=== PATIENT | female | born 1990 | race Caucasian/White ===

== ENCOUNTER 2023-01-08 08:22 | Outpatient (REF) | payer OTHER, SELFPAY ==
[2023-01-08 11:12] LABS: MANUAL DIFF FLAG NO
[2023-01-08 11:30] LABS: Basophils Percent Auto 0.7 % (0-2); Eosinophils Absolute Auto 0.1 X10*3/uL (0.0-0.4); Eosinophils Percent Auto 1.5 % (0-4); Hematocrit 41.1 % (37.0-47.0); Hemoglobin 13.4 g/dl (12.0-16.0); Imm Gran Abs Auto 0.01 X10*3/uL (0.00-0.03); Imm Gran Pct Auto 0.2 % (0.0-0.4); Lymphocytes Percent Auto 34.2 % (20-40); Mean Corpuscular HGB Conc 32.6 g/dl (31.0-35.0); Mean Corpuscular Hemoglobin 28.3 pg (27.0-33.0); Mean Corpuscular Volume 86.9 fL (80.0-98.0); Mean Platelet Volume 11.6 fL (9.4-12.3); Monocytes Absolute Auto 0.5 X10*3/uL (0.1-1.2); Monocytes Percent Auto 7.7 % (2-11); Neutrophils Absolute Auto 3.3 x10*3/uL (2.0-8.3); Neutrophils Percent Auto 55.7 % (45-73); Platelet Count 216 X10*3/uL (160-400); Red Blood Count 4.73 X10*6/uL (4.20-5.50); Red Cell Distribution Width 12.4 % (11.0-16.0)
[2023-01-08 11:59] LABS: Alanine Aminotransferase 9 U/L (0-31); Albumin Level 4.6 g/dL (3.5-5.0); Alkaline Phosphatase 66 U/L (39-117); Anion Gap 15 (12-20); Aspartate Amino Transferase 15 U/L (5-31); Bilirubin Total 1.6 mg/dL (0.0-1.0); Blood Urea Nitrogen 8 mg/dL (9-16); Calcium 9.4 mg/dL (8.4-10.2); Carbon Dioxide 21 mmol/L (22-29); Chloride 107 mmol/L (96-108); Estimated Glomerular Filt Rate > 60; Glucose Fasting 84 mg/dL (60-99); Potassium 3.9 mmol/L (3.3-5.1); Sodium 139 mmol/L (135-145); TSH reflex Free T4 0.68 uIU/mL (0.32-4.0); Total Protein 7.6 g/dL (6.5-8.0)
[2023-01-15 17:38] LABS: Vitamin D 25-OH, D2 <4 ng/mL; Vitamin D 25-OH, D3 22 ng/mL; Vitamin D 25-OH, Total 22 ng/mL (30-100)
== END 2023-01-08 08:23 | disposition home or self-care (01) ==
LOC: HO.HMGCLDS 08:22
PROVIDERS: PCP Internal Medicine; Visit Provider Internal Medicine
DX: Z31.7 Encounter for procreative management and counseling for gestational carrier (principal); E66.3 Overweight; Z13.21 Encounter for screening for nutritional disorder
CPT/HCPCS: 36415; 80053; 82306; 84443; 85025

== ENCOUNTER 2024-02-12 09:45 | Outpatient (AMB) | payer OTHER, SELFPAY ==
--- NOTE | 2024-02-12 09:50 | A.OFFPC_ITS ---
Vital Signs 02/12/24 09:51 Height 5 ft 4 in Weight 165 lb BMI 28.3 BP 120/80 Blood Pressure Location Rt brachial Position Sitting Pulse 78 Pulse Source Pulse Oximeter Pulse Oximetry (%) 97 Oxygen Delivery Method Room Air Intake Visit Reasons: PE Allergies cefaclor [From Ceclor] Adverse Reaction (Mild, Verified 02/12/24 09:52) hives Medication List - Last Reconciled 02/12/24 by Pastor Montanez MD No Known Home Meds Tobacco use date assessed: 02/12/24 Dental Screening Dental Screen Date: 02/12/24 Did you have a dental visit in the last 12 months?: Yes Did you have a dental problem in the last 6 months where you did not have access to dental care?: No Was dental information given to patient?: Patient has dentist HPI PE HPI Details Patient is a 33-year-old female who is at the moment date of delivery is 03/05/2024 Patient is seeing OBGYN at [facility] Dr. Brown phone number [phone] Last time she had labs last year at physical exam her bilirubin was slightly off we will be repeating labs again I will forward the lab report to the OBGYN. Patient offer no complaints today She will return in 1 year for physical exam [facility] Social History Housing: House Patient Tobacco Use Status: Never used Tobacco e-Cigarette/Vaping Use: Never Used service: No Current occupational status: employed Current occupation: [employer] Cognitive needs: No Hearing needs: No Vision needs: Yes Questionnaire PHQ-9 Over the last 2 weeks, how often have you been bothered by any of the following problems? 1. Little interest or pleasure in doing things: not at all 2. Feeling down, depressed, or hopeless: not at all 3. Trouble falling or staying asleep, or sleeping too much: several days 4. Feeling tired or having little energy: several days 5. Poor appetite or overeating: not at all 6. Feeling bad about yourself - or that you are a failure or have let yourself or your family down: not at all 7. Trouble concentrating on things, such as reading the newspaper or watching television: not at all 8. Moving or speaking so slowly that other people could have noticed. Or the opposite - being so fidgety or restless that you have been moving around a lot more than usual: not at all 9. Thoughts that you would be better off or of hurting yourself in some way: not at all Total score: 2 Depression Screening Interpretation: Negative Depression Screening Done: Yes 11692 - PHQ-9 Billing: Yes Source: Developed by Drs. Soy Hdez, Fifi Fuchs, Shukri Romero and colleagues, with an educational chiqui from [employer]. Thrive Questionnaire Date Thrive assessed: 02/12/24 I am a: Patient What is your living situation today?: I have a steady place to live Within the past 12 months, did the food you bought not last and you didn't have the money to get more?: Never true Within the past 12 months, did you worry whether your food would run out before you got money to buy more?: Never true Do you have trouble paying for medicines?: No Do you have trouble getting transportation to medical appointments?: No Do you have trouble paying your heating and electricity bill?: No Do you have trouble taking care of your child, family member or friend?: No Do you have trouble with day-to-day activities such as bathing, preparing meals, shopping, managing finances, etc.?: No Are you currently unemployed and looking for a job?: No Are you interested in more education?: No Please select the resources that you would like help with: None Currently or been in a relationship where the following occur: I choose not to answer THRIVE Score: 0 AUDIT C Alcohol Use Questionnaire (AUDIT-C) 1. How often do you have a drink containing alcohol?: Never 3. How often do you have six or more drinks on one occasion?: Never Total Score: 0 Score Reviewed/Action Taken: No DEEDEE-7 AMB Questionnaire DEEDEE-7 Date DEEDEE - 7 assessed: 02/12/24 Feeling nervous, anxious, or on edge: 0 = Not at all Not being able to stop or control worryin = Not at all Worrying too much about different things: 0 = Not at all Trouble relaxin = Not at all Being so restless that it is hard to sit still: 0 = Not at all Becoming easily annoyed or irritable: 0 = Not at all Feeling afraid as if something awful might happen: 0 = Not at all Total DEEDEE-7 score (0-4 normal; 5-9 mild; 10-14 moderate; 15-21 severe): 0 Source: Developed by Drs. Soy Hdez, Fifi Fuchs, Shukri Romero and colleagues, with an educational chiqui from [employer]. DEEDEE-7 Assessment Billing DEEDEE-7 Assessment Tool: DEEDEE-7 Assessment 41338 Review of Systems Const Denies chills, Denies fever(s) and Denies headache(s) Eyes Denies blurry vision ENT Denies headache(s), Denies nasal discharge, Denies nasal obstruction, Denies odynophagia and Denies sinus pain Card Denies chest pain at rest and Denies chest pain with activity Resp Denies cough and Denies hemoptysis GI Denies diarrhea, Denies odynophagia, Denies vomiting and Denies hematemesis Reports as per HPI Musc Denies abnormal gait Skin/Breast Reports as per HPI Neuro Denies Neuro-related abnormal movements, Denies Abnormal speech present, Denies abnormal gait, Denies headache(s) and Denies Sensory deficit (Neuro) Psych Denies mood swings and Denies paranoia Endo Reports as per HPI Chu/Lymph Reports as per HPI Aller/Immun Reports as per HPI Physical exam (Primary Care) Vital Signs: Last Vital Signs Pulse 78 02/12/24 09:51 BP 120/80 02/12/24 09:51 Pulse Ox 97 02/12/24 09:51 Oxygen Delivery Method Room Air 02/12/24 09:51 BMI result Body Mass Index 28.3 Tobacco/Smoking Status: Tobacco use Status Tobacco use date assessed 02/12/24 02/12/24 09:55 Patient Tobacco Use Status Never used Tobacco 02/12/24 09:55 e-Cigarette/Vaping Use Never Used 02/12/24 09:55 Depression Screening Interpretation: Negative Thrive Assessment: Date of Thrive Assessment Date Thrive assessed 01/02/23 02/12/24 09:55 Currently or been in a relationship where the following occur: I choose not to answer Const General: cooperative, comfortable and no acute distress Orientation/consciousness: patient oriented x3 HENMT Head: Yes normocephalic and Yes atraumatic Eyes General: appearance normal, both eyes and all related structures Pupils: Equal, round and reactive pupils present EOM: EOMs intact bilaterally Neck Neck: Yes supple and No lymphadenopathy Thyroid: Thyroid normal Lymphatic: no lymphadenopathy noted Resp Effort & Inspection: normal respiratory effort and able to speak in complete sentences Auscultation: clear to auscultation bilaterally Cardio Heart sounds: S1 normal heart sound present and S2 normal heart sound present GI Other: Palpation (GI): Soft to palpation and nontender Auscultation: normal bowel sounds General: Yes no CVA tenderness Back/Spine/Pelvis Back: no CVA tenderness Skin General skin exam: elasticity normal and turgor normal Neuro General: patient oriented x3 and gait normal Cranial nerves: Yes Equal, round and reactive pupils present Speech: No Abnormal speech present Sensory Exam: No Sensory deficit (Neuro) Coordination: tandem gait normal and Romberg test negative Extrem General: Yes normal exam except as noted and No edema Assessment and Plan Assessment & Plan (1) Encounter for general adult medical examination with abnormal findings: Code(s): Z00. - Encounter for general adult medical examination with abnormal findings (2) : Code(s): Z34. - Encounter for supervision of normal , unspecified, unspecified trimester Qualifiers: Weeks of gestation: 21 weeks Qualified Code(s): Z3A.21 - 21 weeks gestation of (3) LFT elevation: Code(s): R79.89 - Other specified abnormal findings of blood chemistry Plan Patient is a 33-year-old female who is at the moment date of delivery is 03/05/2024 Patient is seeing OBGYN at [facility] phone number [phone] Last time she had labs last year at physical exam her bilirubin was slightly off we will be repeating labs again I will forward the lab report to the OBGYN. Patient offer no complaints today She will return in 1 year for physical exam Orders: Orders TSH reflex Free T4 Today R79.89 - Other specified abnormal findings of blood chemistry, Z00. - Encounter for general adult medical examination with abnormal findings, Z34.90 - Encounter for supervision of normal , unspecified, unspecified trimester Complete Blood Count Auto Diff Today R79.89 - Other specified abnormal findings of blood chemistry, Z00. - Encounter for general adult medical examination with abnormal findings, Z34. - Encounter for supervision of normal , unspecified, unspecified trimester Vitamin D 25-OH (D2 and D3) Today R79.89 - Other specified abnormal findings of blood chemistry, Z00.01 - Encounter for general adult medical examination with abnormal findings, Z34.90 - Encounter for supervision of normal , unspecified, unspecified trimester Comprehensive Met. Panel Today R79.89 - Other specified abnormal findings of blood chemistry, Z00.01 - Encounter for general adult medical examination with abnormal findings, Z34.90 - Encounter for supervision of normal , unspecified, unspecified trimester Coding Level of Care Code Est Pt Level 3 (10336) Est Pt Prev Care 18-39y(06382) Diagnoses Encounter for general adult medical examination with abnormal findings Z00.01 21 weeks gestation of Z3A.21 Weeks of gestation: 21 weeks LFT elevation R79.89 Additional Codes DEEDEE-7 Assessment Billing - DEEDEE-7 Assessment Tool: DEEDEE-7 Assessment 52633 ([id number])
[2024-02-12 09:51] VITALS: BP 120/80; PULSE 78; O2SAT 97; BMI 28.3
== END 2024-02-12 10:14 | disposition home or self-care (01) ==
PROVIDERS: PCP Internal Medicine; Visit Provider Internal Medicine
DX: Z00.00 Encounter for general adult medical examination without abnormal findings (principal); Z3A.21 21 weeks gestation of pregnancy; R79.89 Other specified abnormal findings of blood chemistry
CPT/HCPCS: 99395

== ENCOUNTER 2024-02-12 10:15 | Outpatient (REF) | payer OTHER, SELFPAY ==
[2024-02-12 13:14] LABS: MANUAL DIFF FLAG NO
[2024-02-12 13:18] LABS: Basophils Percent Auto 0.3 % (0-2); Eosinophils Absolute Auto 0.1 X10*3/uL (0.0-0.4); Eosinophils Percent Auto 0.8 % (0-4); Hematocrit 33.5 % (37.0-47.0); Imm Gran Abs Auto 0.22 X10*3/uL (0.00-0.03); Imm Gran Pct Auto 1.8 % (0.0-0.4); Lymphocytes Absolute Auto 1.8 X10*3/uL (1.2-4.9); Lymphocytes Percent Auto 15.2 % (20-40); Mean Corpuscular HGB Conc 32.8 g/dl (31.0-35.0); Mean Corpuscular Hemoglobin 29.3 pg (27.0-33.0); Mean Corpuscular Volume 89.3 fL (80.0-98.0); Mean Platelet Volume 11.5 fL (9.4-12.3); Monocytes Absolute Auto 0.8 X10*3/uL (0.1-1.2); Monocytes Percent Auto 6.5 % (2-11); Neutrophils Percent Auto 75.4 % (45-73); Platelet Count 187 X10*3/uL (160-400); Red Blood Count 3.75 X10*6/uL (4.20-5.50); Red Cell Distribution Width 13.2 % (11.0-16.0); White Blood Count 11.9 X10*3/uL (4.8-10.8)
[2024-02-12 13:46] LABS: Alanine Aminotransferase 14 U/L (0-31); Albumin Level 3.4 g/dL (3.5-5.0); Alkaline Phosphatase 91 U/L (39-117); Anion Gap 12 (12-20); Aspartate Amino Transferase 17 U/L (5-31); Bilirubin Total 0.3 mg/dL (0.0-1.0); Blood Urea Nitrogen 8 mg/dL (9-16); Calcium 8.8 mg/dL (8.4-10.2); Carbon Dioxide 22 mmol/L (22-29); Chloride 108 mmol/L (96-108); Estimated Glomerular Filt Rate > 60; Glucose Random 83 mg/dL (60-115); Potassium 3.9 mmol/L (3.3-5.1); Sodium 138 mmol/L (135-145); Total Protein 6.7 g/dL (6.5-8.0)
[2024-02-12 14:02] LABS: TSH reflex Free T4 1.05 uIU/mL (0.32-4.0)
[2024-02-18 14:58] LABS: Vitamin D 25-OH, D2 <4 ng/mL; Vitamin D 25-OH, D3 46 ng/mL; Vitamin D 25-OH, Total 46 ng/mL (30-100)
== END 2024-02-12 10:16 | disposition home or self-care (01) ==
LOC: HO.HMGCLDS 10:15
PROVIDERS: PCP Internal Medicine; Visit Provider Internal Medicine
DX: Z00.01 Encounter for general adult medical examination with abnormal findings (principal); R79.89 Other specified abnormal findings of blood chemistry; Z34.90 Encounter for supervision of normal pregnancy, unspecified, unspecified trimester
CPT/HCPCS: 36415; 80053; 82306; 84443; 85025

== ENCOUNTER 2025-06-07 10:14 | Outpatient (AMB) | payer OTHER, SELFPAY ==
--- NOTE | 2025-06-07 10:18 | MHC.PC.OV ---
Vital Signs 06/07/25 10:19 Height 5 ft 4 in Weight 160 lb BMI 27.5 BP 110/70 Blood Pressure Location Rt brachial Position Sitting Pulse 76 Pulse Source Pulse Oximeter Pulse Oximetry (%) 97 Intake Visit Reasons: pe Allergies cefaclor (From Ceclor) Adverse Reaction (Mild, Verified 06/07/25 10:19) hives Medication List - Last Reconciled 06/07/25 by Pastor Montanez MD No Known Home Meds Tobacco use date assessed: 06/07/25 Dental Screening Dental Screen Date: 06/07/25 Did you have a dental visit in the last 12 months?: Yes Did you have a dental problem in the last 6 months where you did not have access to dental care?: No Was dental information given to patient?: Patient has dentist HPI pe HPI Details The patient is a 34 year old female presenting for Physical exam and concerns about anemia. Exercise-induced ankle strain: - Patient reports ankle discomfort. - Onset after increasing running activities. - Patient has been pushing herself more with running. Anemia: - Patient was informed of slight anemia during lab results from January of last year. - Noted to have heavy menstrual cycles. Health Maintenance - Advised on the importance of iron supplement due to anemia. - Flu vaccine to be administered as per usual annual practice. - Blood test scheduled for anemia monitoring. [facility] - Dr. Sahu for [facility] care. Employment - Affiliated with [employer] Patient Instructions - Take prescribed iron supplements to manage anemia. - Schedule a fasting blood test at your convenience. - Continue with the flu vaccine as planned. Review of Systems - General: No fever no chills - Neurological: No headaches no dizziness - Ear nose throat: No sore throat no hearing difficulty no ear pain - Cardiovascular: No syncope, no chest pain, no palpitations - Gastrointestinal: No nausea vomiting or diarrhea - Endocrine: No polyuria polydipsia no heat intolerance - Genitourinary: No dysuria - Skin: No new complaints Physical Exam General: Cooperative, healthy appearing, comfortable, no acute distress Orientation: Patient oriented x3 Head: Normal to inspection Ears: Within normal limit visually, no problem in the ears Nose: Normal external nose present Face and sinus: Normal facial exam Eyes: Appearance normal, extraocular movement intact pupils reactive Neck: Normal visual inspection and supple Respiratory: Normal respiratory effort and able to speak in complete sentences. Clear to auscultation, no stridor Cardiovascular: S1 and S2 RRR Breast exam thru Obgyn GI: Normal to inspection. Soft to palpation and nontender Skin: Turgor normal, no acute findings Neuro: Patient oriented x3, motor sensory intact, balance intact, tandem pass Extremities: Normal to inspection, ROM intact . [facility] Surgical History History of root canal procedure Hx of section Social History Housing: House Patient Tobacco Use Status: Never used Tobacco e-Cigarette/Vaping Use: Never Used service: No Current occupational status: employed Current occupation: [employer] Cognitive needs: No Hearing needs: No Vision needs: Yes Questionnaire PHQ-9 Over the last 2 weeks, how often have you been bothered by any of the following problems? 1. Little interest or pleasure in doing things: not at all 2. Feeling down, depressed, or hopeless: not at all 3. Trouble falling or staying asleep, or sleeping too much: not at all 4. Feeling tired or having little energy: several days 5. Poor appetite or overeating: not at all 6. Feeling bad about yourself - or that you are a failure or have let yourself or your family down: not at all 7. Trouble concentrating on things, such as reading the newspaper or watching television: not at all 8. Moving or speaking so slowly that other people could have noticed. Or the opposite - being so fidgety or restless that you have been moving around a lot more than usual: not at all 9. Thoughts that you would be better off or of hurting yourself in some way: not at all Total score: 1 Depression Screening Interpretation: Negative Depression Screening Done: Yes 23701 - PHQ-9 Billing: Yes Source: Developed by Drs. Soy Hdez, Fifi Fuchs, Shukri Romero and colleagues, with an educational chiqui from [employer]. Thrive Questionnaire Date Thrive assessed: 02/08/25 I am a: Patient What is your living situation today?: I have a steady place to live Within the past 12 months, did the food you bought not last and you didn't have the money to get more?: Never true Within the past 12 months, did you worry whether your food would run out before you got money to buy more?: Never true Do you have trouble paying for medicines?: No Do you have trouble getting transportation to medical appointments?: No Do you have trouble paying your heating and electricity bill?: No Do you have trouble taking care of your child, family member or friend?: No Do you have trouble with day-to-day activities such as bathing, preparing meals, shopping, managing finances, etc.?: No Are you currently unemployed and looking for a job?: No Are you interested in more education?: No Please select the resources that you would like help with: None Currently or been in a relationship where the following occur: No concerns reported THRIVE Score: 0 DEEDEE-7 AMB Questionnaire DEEDEE-7 Date DEEDEE - 7 assessed: 02/12/24 Source: Developed by Drs. Soy Hdez, Fifi Fuchs, Shukri Romero and colleagues, with an educational chiqui from [employer]. Physical exam (Primary Care) Vital Signs: Last Vital Signs Pulse 76 06/07/25 10:19 BP 110/70 06/07/25 10:19 Pulse Ox 97 06/07/25 10:19 BMI result Body Mass Index 27.5 Tobacco/Smoking Status: Tobacco use Status Tobacco use date assessed 06/07/25 06/07/25 10:21 Patient Tobacco Use Status Never used Tobacco 06/07/25 10:21 e-Cigarette/Vaping Use Never Used 06/07/25 10:21 PHQ-9: PHQ-9 Score PHQ-9: Total score 1 06/07/25 10:53 Depression Screening Interpretation: Negative Thrive Assessment: Date of Thrive Assessment Date Thrive assessed 02/08/25 06/07/25 10:21 Currently or been in a relationship where the following occur: No concerns reported Coding Level of Care Code Est Pt Level 3 (75741) Est Pt Prev Care 18-39y(17535) Diagnoses Encounter for general adult medical examination with abnormal findings Z00.01 Microcytic anemia D50.9 Additional Codes PHQ-9 - 42196 - PHQ-9 Billing: Yes ([id number]) Assessment & Plan Assessment & Plan (1) Encounter for general adult medical examination with abnormal findings: Code(s): Z00.01 - Encounter for general adult medical examination with abnormal findings Category: Medical (2) Microcytic anemia: Code(s): D50.9 - Iron deficiency anemia, unspecified Category: Medical Plan The patient is a 34 year old female presenting for Physical exam and concerns about anemia. Exercise-induced ankle strain: - Patient reports ankle discomfort. - Onset after increasing running activities. - Patient has been pushing herself more with running. Anemia: - Patient was informed of slight anemia during lab results from January of last year. - Noted to have heavy menstrual cycles. Health Maintenance - Advised on the importance of iron supplement due to anemia. - Flu vaccine to be administered as per usual annual practice. - Blood test scheduled for anemia monitoring. [facility] - Dr. Sahu for [facility] [facility] care. Employment - Affiliated with [employer] Patient Instructions - Take prescribed iron supplements to manage anemia. - Schedule a fasting blood test at your convenience. - Continue with the flu vaccine as planned. . Orders: Orders Lipid Panel Today D50.9 - Iron deficiency anemia, unspecified, Z00.01 - Encounter for general adult medical examination with abnormal findings Vitamin D 25-OH (D2 and D3) Today D50.9 - Iron deficiency anemia, unspecified, Z00.01 - Encounter for general adult medical examination with abnormal findings Ferritin Today D50.9 - Iron deficiency anemia, unspecified, Z00.01 - Encounter for general adult medical examination with abnormal findings Complete Blood Count Auto Diff Today D50.9 - Iron deficiency anemia, unspecified, Z00.01 - Encounter for general adult medical examination with abnormal findings Comprehensive [place]. Panel Fast Today D50.9 - Iron deficiency anemia, unspecified, Z00.01 - Encounter for general adult medical examination with abnormal findings TSH reflex Free T4 Today D50.9 - Iron deficiency anemia, unspecified, Z00.01 - Encounter for general adult medical examination with abnormal findings
[2025-06-07 10:19] VITALS: BP 110/70; PULSE 76; O2SAT 97; BMI 27.5
--- OUTSIDE RECORDS SUMMARY | 2025-06-07 12:35 | XMS_ITS | Encounter Summary ---
Author Organization [facility] and [facility] Address [address] [place] [id number] Care Team Providers Care Business Analysis Analyst Name Role Phone Pcp, Does Not Have A Primary Care Provider Unava ilable Encounter Details Date Type Department Care Team (Late st Contact Info) Description 09/09/2023 Scanned Document Reproductive Endocrinology & Infertility [address] [place] [address] Obtain, Unable To Social History Tobacco Use Types Packs/Day Years Used Date Smoking Tobacco: Never Assessed Comments Unknown Sex and Gender Information Value Date Recorded Sex Assigned at Not on file Legal Sex Female 4:09 PM EST Gender Identity Not on file Sexual Orientation Not on file documented as of this encounter Plan of Treatment Not on file documented as of this encounter Visit Diagnoses Not on filedocumented in this encounter Care Teams Business Analysis Analyst Relationship Specialty Start Date End Date Pcp, Does Not Have A PCP - General 08/03/23 documented as of this encounter
--- OUTSIDE RECORDS SUMMARY | 2025-06-07 12:35 | XMS_ITS | Encounter Summary ---
Author Organization [facility] Address [address] [place] [id number] Care Team Providers Care Teacher Ballet Name Role Phone Pcp, Does Not Have A Primary Care Provider Unava ilable Encounter Details Date Type Department Care Team (Late st Contact Info) Description 07/22/2023 Documentation [facility] [address], [place] [address] Chanel Echeverria MD [address] [place] [address] Dr Reyes [address] [place] [address] Social History Tobacco Use Types Packs/Day Years Used Date Smoking Tobacco: Never Assessed Comments Unknown Sex and Gender Information Value Date Recorded Sex Assigned at Not on file Legal Sex Female 4:09 PM EST Gender Identity Not on file Sexual Orientation Not on file documented as of this encounter Miscellaneous Notes * Treatment Plan - [place] - 07/22/2023 1:32 PM EST Outside Monitoring Treatment plan Physician: GILDARDO Diagnosis and ICD 10 codes: z31.78 Outside Facility: [facility] Outside Ordering Physician Name: Soy Kincaid Outside Facility Outside Facility Expected monitoring start date: 08/03/2023 08/19/2023 Monitoring Site: Patient will be monitored in [place]: no Patient will be monitored in [place]: yes Monitoring Authorization Needed: Venipuncture 82188: yes Transvaginal Ultrasound 93791: yes Transpelvic Ultrasound 80465: no Estradiol Blood Work 48518: yes Progesterone Blood Work 72487: yes FSH Blood Work 76190: no LH Blood Work 84818: no TSH Blood Work 94071: no HCG Blood Work 27328: no Additional Comments: documented in this encounter Plan of Treatment Not on file documented as of this encounter Visit Diagnoses Not on filedocumented in this encounter Care Teams Teacher Ballet Relationship Specialty Start Date End Date Pcp, Does Not Have A PCP - General 08/03/23 documented as of this encounter
--- OUTSIDE RECORDS SUMMARY | 2025-06-07 12:35 | XMS_ITS | Clinical Summary ---
Author Organization [address] [phone] Phone Care Team Providers Care Store Operations Associate Name Role Phone Pcp, Does Not Have A Primary Care Provider Unava ilable Active Problems No known active problems Social History Tobacco Use Types Packs/Day Years Used Date Smoking Tobacco: Never Assessed Comments Unknown Sex and Gender Information Value Date Recorded Sex Assigned at Not on file Legal Sex Female 4:09 PM EST Gender Identity Not on file Sexual Orientation Not on file Plan of Treatment Health Maintenance Due Date Last Done Comments HIV screening 2005 Hepatitis C screening 2010 Cervical cancer screening 2013 Influenza vaccine 03/17/2025 06/01/2022, , 07/22/2020, Additional history exists Covid-19 vaccine series ( season) 2025 04/28/2021, 03/09/2021 Tetanus adult (Td q 10,TDAP once) 03/29/2030 03/29/2020 RSV Immunization (1 - 1-dose 75+ series) 2067 Meningococcal Vaccine Aged Out 03/29/2020 No yina ricardo eligible based on patient's age to complete this topic Meningococcal B Vaccine Aged Out No l onger eligible based on patient's age to complete this topic Pneumococcal Vaccine (2 - 49 years) Aged Out No longer eligible based on patient's age to complete this topic Care Teams Store Operations Associate Relationship Specialty Start Date End Date Pcp, Does Not Have A PCP - General 08/03/23
--- OUTSIDE RECORDS SUMMARY | 2025-06-07 12:36 | XMS_ITS | Encounter Summary ---
Author Organization [facility] and [facility] Address [address] [place] [id number] Care Team Providers Care Net Web Application Developer Name Role Phone Pcp, Does Not Have A Primary Care Provider Unava ilable Encounter Details Date Type Department Care Team (Late st Contact Info) Description 09/09/2023 Scanned Document Reproductive Endocrinology & Infertility [address] [place] [address] Obtain, Unable To Social History Tobacco Use [...] on filedocumented in this encounter Care Teams Net Web Application Developer Relationship Specialty Start Date End Date Pcp, Does Not Have A PCP - General 08/03/23 documented as of this encounter
--- OUTSIDE RECORDS SUMMARY | 2025-06-07 12:36 | XMS_ITS | Encounter Summary ---
Author Organization [facility] and [facility] Address [address] [place] [phone] Care Team Providers Care Assistant Auto Center Manager Name Role Phone Pcp, Does Not Have A Primary Care Provider Unava ilable Encounter Details Date Type Department Care Team (Late st Contact Info) Description 09/09/2023 Documentation [facility] [address], [place] [address] Chanel Echeverria MD [address] [place] [address] Dr Reyes [address] [place] [address] Social History Tobacco Use Types Packs/Day Years Used Date Smoking Tobacco: Never Assessed Comments Unknown Sex and Gender Information Value Date Recorded Sex Assigned at Not on file Legal Sex Female 4:09 PM EST Gender Identity Not on file Sexual Orientation Not on file documented as of this encounter Miscellaneous Notes * Treatment Plan - Crystal - 09/09/2023 7:28 AM EST Outside Monitoring Treatment plan Physician: GILDARDO Diagnosis and ICD 10 codes: O09.811 Z31.7 Outside Facility: [facility] Fertility Outside Ordering Physician Name: Soy Kincaid MD Outside Facility Outside Facility Expected monitoring start date: 09/15/2023 Monitoring Site: Patient will be monitored in [place]: no Patient will be monitored in [place]: yes Monitoring Authorization Needed: Venipuncture 20693: yes Transvaginal Ultrasound 52836: no Transpelvic Ultrasound 13903: no Estradiol Blood Work 21368: yes Progesterone Blood Work 40925: yes FSH Blood Work 06730: no LH Blood Work 40992: no TSH Blood Work 12855: no HCG Blood Work 50486: yes Additional Comments: documented in this encounter Plan of Treatment Not on file documented as of this encounter Visit Diagnoses Not on filedocumented in this encounter Care Teams Assistant Auto Center Manager Relationship Specialty Start Date End Date Pcp, Does Not Have A PCP - General 08/03/23 documented as of this encounter
== END 2025-06-07 11:00 | disposition home or self-care (01) ==
LOC: HO.HMCC 10:15
PROVIDERS: PCP Internal Medicine; Visit Provider Internal Medicine
DX: Z23 Encounter for immunization (principal)

== ENCOUNTER → 2025-06-07 10:14 | Outpatient (BNVA) | payer OTHER, SELFPAY | PROVIDERS: PCP Internal Medicine; Visit Provider Internal Medicine | DX: Z00.01 Encounter for general adult medical examination with abnormal findings (principal); D50.9 Iron deficiency anemia, unspecified; S96.919A Strain of unspecified muscle and tendon at ankle and foot level, unspecified foot, initial encounter; X58.XXXA Exposure to other specified factors, initial encounter; Y93.02 Activity, running; Y92.9 Unspecified place or not applicable; Y99.9 Unspecified external cause status; Z23 Encounter for immunization | CPT/HCPCS: 90471; 90656; 96127 ==

== ENCOUNTER 2025-06-08 08:49 | Outpatient (REF) | payer OTHER, SELFPAY ==
--- OUTSIDE RECORDS SUMMARY | 2025-06-08 09:32 | XMS_ITS | Encounter Summary ---
Author Organization [facility] and [facility] Address [address] [place] [phone] Care Team Providers Care Shingles Roofer Helper Name Role Phone Pcp, Does Not Have A Primary Care Provider Unava ilable Encounter Details Date Type Department Care Team (Late st Contact Info) Description 09/09/2023 Documentation [facility] [address] [address] Chanel Echeverria MD [address] [place] [address] Dr Reyes [address] [place] [address] Social History Tobacco Use Types Packs/Day Years [...] ICD 10 codes: O09.811 Z31.7 Outside Facility: [facility] Fertility Outside Ordering Physician Name: Soy Kincaid MD Outside Facility Outside Facility Expected monitoring start date: 09/15/2023 Monitoring Site: Patient will be monitored in [place]: no Patient will be monitored in [place]: yes Monitoring Authorization Needed: Venipuncture 43619: yes Transvaginal Ultrasound 05587: no Transpelvic Ultrasound 05936: no Estradiol Blood Work 76126: yes Progesterone Blood Work 59302: yes FSH Blood Work 21288: no LH Blood Work 56290: no TSH Blood Work 40927: no HCG Blood Work 09064: yes Additional Comments: documented in this encounter Plan of Treatment Not on file documented as of this encounter Visit Diagnoses Not on filedocumented in this encounter Care Teams Shingles Roofer Helper Relationship Specialty Start Date End Date Pcp, Does Not Have A PCP - General 08/03/23 documented as of this encounter
--- OUTSIDE RECORDS SUMMARY | 2025-06-08 09:32 | XMS_ITS | Encounter Summary ---
Author Organization [facility] and [facility] Address [address] [place] [phone] Care Team Providers Care Truck Engine Assembler Name Role Phone Pcp, Does Not Have A Primary Care Provider Unava ilable Encounter Details Date Type Department Care Team (Late st Contact Info) Description 09/09/2023 Scanned Document Reproductive Endocrinology & Infertility [address] [place] [address] Obtain, Unable To Social History Tobacco Use [...] on filedocumented in this encounter Care Teams Truck Engine Assembler Relationship Specialty Start Date End Date Pcp, Does Not Have A PCP - General 08/03/23 documented as of this encounter
--- OUTSIDE RECORDS SUMMARY | 2025-06-08 09:32 | XMS_ITS | Encounter Summary ---
Author Organization [facility] and [facility] Address [address] [place] [phone] Care Team Providers Care Clinical Radiologist Name Role Phone Pcp, Does Not Have A Primary Care Provider Unava ilable Encounter Details Date Type Department Care Team (Late st Contact Info) Description 09/09/2023 Scanned Document Reproductive Endocrinology & Infertility 200 [place] [address] Obtain, Unable To Social History Tobacco Use [...] on filedocumented in this encounter Care Teams Clinical Radiologist Relationship Specialty Start Date End Date Pcp, Does Not Have A PCP - General 08/03/23 documented as of this encounter
--- OUTSIDE RECORDS SUMMARY | 2025-06-08 09:32 | XMS_ITS | Encounter Summary ---
Author Organization [facility] and [facility] Address [address] [place] [phone] Care Team Providers Care Director [employer] Name Role Phone Pcp, Does Not Have A Primary Care Provider Unava ilable Encounter Details Date Type Department Care Team (Late st Contact Info) Description 07/22/2023 Documentation [facility] [address] [address] Chanel Echeverria MD [address] [place] [address] Dr Reyes [address] [place] [address] Social History Tobacco Use Types Packs/Day Years [...] and ICD 10 codes: z31.78 Outside Facility: [facility] Fertility Outside Ordering Physician Name: Soy Kincaid Outside Facility Outside Facility Expected monitoring start date: 08/03/2023 08/19/2023 Monitoring Site: Patient will be monitored in [place]: no Patient will be monitored in [place]: yes Monitoring Authorization Needed: Venipuncture 16470: yes Transvaginal Ultrasound 63414: yes Transpelvic Ultrasound 57403: no Estradiol Blood Work 50102: yes Progesterone Blood Work 61011: yes FSH Blood Work 34173: no LH Blood Work 44736: no TSH Blood Work 11167: no HCG Blood Work 51210: no Additional Comments: documented in this encounter Plan of Treatment Not on file documented as of this encounter Visit Diagnoses Not on filedocumented in this encounter Care Teams Director [employer] Relationship Specialty Start Date End Date Pcp, Does Not Have A PCP - General 08/03/23 documented as of this encounter
--- OUTSIDE RECORDS SUMMARY | 2025-06-08 09:32 | XMS_ITS | Clinical Summary ---
Author Organization [address] [address] Phone Care Team Providers Care Tieing Machine Operator Name Role Phone Pcp, Does Not Have [...] age to complete this topic Care Teams Tieing Machine Operator Relationship Specialty Start Date End Date Pcp, Does Not Have A PCP - General 08/03/23
[2025-06-08 10:31] LABS: MANUAL DIFF FLAG NO
[2025-06-08 10:43] LABS: Hematocrit 40.4 % (37.0-47.0); Hemoglobin 13.1 g/dl (12.0-16.0); Imm Gran Abs Auto 0.04 X10*3/uL (0.00-0.03); Imm Gran Pct Auto 0.5 % (0.0-0.4); Lymphocytes Absolute Auto 2.0 X10*3/uL (1.2-4.9); Mean Corpuscular HGB Conc 32.4 g/dl (31.0-35.0); Mean Corpuscular Hemoglobin 27.3 pg (27.0-33.0); Mean Corpuscular Volume 84.2 fL (80.0-98.0); NRBC Abs Auto 0.000 X10*3/uL (0.0-0.012); NRBC Pct Auto 0.0 /100WBC (0.0-0.2); Platelet Count 230 X10*3/uL (160-400); Red Blood Count 4.80 X10*6/uL (4.20-5.50); White Blood Count 8.2 X10*3/uL (4.8-10.8)
[2025-06-08 11:29] LABS: Alanine Aminotransferase 13 U/L (0-31); Albumin Level 4.8 g/dL (3.5-5.0); Alkaline Phosphatase 84 U/L (39-117); Anion Gap 12 (12-20); Aspartate Amino Transferase 20 U/L (5-31); Blood Urea Nitrogen 9 mg/dL (9-16); Calcium 9.4 mg/dL (8.4-10.2); Carbon Dioxide 27 mmol/L (22-29); Chloride 107 mmol/L (96-108); Cholesterol 208 mg/dL (<200); Estimated Glomerular Filt Rate > 60; HDL Cholesterol 52 mg/dL (>40); Potassium 4.8 mmol/L (3.3-5.1); Sodium 141 mmol/L (135-145); Total Protein 7.6 g/dL (6.5-8.0); Triglycerides 95 mg/dL (<150)
[2025-06-08 11:36] LABS: Ferritin 13 ng/mL (10-122)
[2025-06-13 17:04] LABS: Vitamin D 25-OH, D2 <4 ng/mL; Vitamin D 25-OH, D3 29 ng/mL; Vitamin D 25-OH, Total 29 ng/mL (30-100)
== END 2025-06-08 08:50 | disposition home or self-care (01) ==
LOC: HO.HMGCLDS 08:49
PROVIDERS: PCP Internal Medicine; Visit Provider Internal Medicine
DX: Z00.01 Encounter for general adult medical examination with abnormal findings (principal); Z01.84 Encounter for antibody response examination; Z13.6 Encounter for screening for cardiovascular disorders; Z13.29 Encounter for screening for other suspected endocrine disorder; D50.9 Iron deficiency anemia, unspecified; Z67.91 Unspecified blood type, Rh negative
CPT/HCPCS: 36415; 80053; 80061; 82306; 82728; 84443; 85025; 86850; 86900; 86901

== ENCOUNTER 2025-08-04 13:12 | Outpatient (AMB) | payer OTHER, SELFPAY ==
[2025-08-04 13:18] VITALS: BP 150/90; PULSE 110; O2SAT 98; BMI 26.6
--- NOTE | 2025-08-04 13:18 | A.OFFPC_ITS ---
Vital Signs 08/04/25 13:18 08/04/25 13:38 Height 5 ft 4 in Weight 155 lb BMI 26.6 BP 150/90 H 120/82 Blood Pressure Location Lt brachial Rt brachial Position Sitting Sitting Pulse 110 H Pulse Source Pulse Oximeter Pulse Oximetry (%) 98 Intake Visit Reasons: follow up Allergies cefaclor (From Ceclor) Adverse Reaction (Mild, Verified 08/04/25 13:18) hives Medication List - Last Reconciled 08/04/25 by Pastor Montanez MD No Known Home Meds Tobacco use date assessed: 06/07/25 Dental Screening Dental Screen Date: 06/07/25 HPI HPI Comments History of Present Illness Details History of Present Illness The patient is a 35 year old female presenting with concerns about her recent A1c result. Prediabetes: - The patient's recent A1c was 5.8%, [facility] was measured on the . - Labs from May showed a fasting glu cose of 101 mg/dL. - She exercises 45 to 60 minutes per ses citlali. - Her grandfather had diabetes. History of Gestational Diabetes: - The patient had a history of gestation al diabetes during a previous . - Her glucose tolerance test during preg tracie was just barely in the abnormal range. - Her gestational diabetes was managed w ith diet control and did not require medication. Anxiety: - The patient identifies as an anxious p erson and reports feeling nervous, which causes her blood pressure to be high in clinical settings. - She has not sought treatment for anxie ty due to concern about losing her job with the [employer] if she were to be placed on medication. Medical History: - Gestational diabetes, diet-controlled - Anxiety Social History: - Employment: The patient works for the [employer], which she fears may have restrictions on certain medications. - Exercise: She exercises regularly for 45 to 60 minutes. - Nutrition: The patient reports she has removed sugar from her diet. - Weight: Her BMI is noted to be slightl y over 25. Family History: - Paternal grandfather had diabetes. [facility] Surgical History History of root canal procedure Hx of section Social History Housing: House Patient Tobacco Use Status: Never used Tobacco e-Cigarette/Vaping Use: Never Used service: No Current occupational status: employed Current occupation: [employer] Cognitive needs: No Hearing needs: No Vision needs: Yes Questionnaire Thrive Questionnaire Date Thrive assessed: 02/08/25 I am a: Patient What is your living situation today?: I have a steady place to live Within the past 12 months, did the food you bought not last and you didn't have the money to get more?: Never true Within the past 12 months, did you worry whether your food would run out before you got money to buy more?: Never true Do you have trouble paying for medicines?: No Do you have trouble getting transportation to medical appointments?: No Do you have trouble paying your heating and electricity bill?: No Do you have trouble taking care of your child, family member or friend?: No Do you have trouble with day-to-day activities such as bathing, preparing meals, shopping, managing finances, etc.?: No Are you currently unemployed and looking for a job?: No Are you interested in more education?: No Currently or been in a relationship where the following occur: No concerns repo rted THRIVE Score: 0 DEEDEE-7 AMB Questionnaire DEEDEE-7 Date DEEDEE - 7 assessed: 02/12/24 Source: Developed by Drs. Soy Hdez, Fifi Fuchs, Shukri Romero and colleagues, with an educational chiqui from [employer]. Review of Systems Narrative Review of Systems - General: No fever no chills - Neurological: No headaches no dizziness - Ear nose throat: No sore throat no hearing difficulty no ear pain - Cardiovascular: No syncope, no chest pain, no palpitations - Gastrointestinal: No nausea vomiting or diarrhea - Endocrine: No polyuria polydipsia no heat intolerance - Genitourinary: No dysuria , no blood in urine Physical exam (Primary Care) Vital Signs: Last Vital Signs Pulse 110 H 08/04/25 13:18 BP 120/82 08/04/25 13:38 Pulse Ox 98 08/04/25 13:18 BMI result Body Mass Index 26.6 Tobacco/Smoking Status: Tobacco use Status Tobacco use date assessed 06/07/25 08/04/25 13:21 Patient Tobacco Use Status Never used Tobacco 08/04/25 13:21 e-Cigarette/Vaping Use Never Used 08/04/25 13:21 Thrive Assessment: Date of Thrive Assessment Date Thrive assessed 02/08/25 08/04/25 13:21 Currently or been in a relationship where the following occur: No concerns reported Narrative Physical Exam - General: No acute distress - HEENT: No acute findings - Neck: Supple - Respiratory system: Able to talk in full sentences, no audible wheeze - Extremities: No new findings - MEAT STUFFER: Alert awake oriented x3 motor intact - Skin: Normal turgor Coding Level of Care Code Est Pt Level 3 (43510) Diagnoses Prediabetes R73.03 Anxiety, generalized F41.1 Hx gestational diabetes Z86.32 Assessment & Plan Assessment & Plan (1) Prediabetes: Code(s): R73.03 - Prediabetes Category: Medical (2) Anxiety, generalized: Code(s): F41.1 - Generalized anxiety disorder Category: Medical (3) Hx gestational diabetes: Code(s): Z86.32 - Personal history of gestational diabetes Category: Medical Plan Problem List - Prediabetes - History of gestational diabetes - Anxiety - Elevated blood pressure reading/ resolved when re checked Plan - A 2-hour glucose tolerance test will be ordered to further evaluate for diabetes, given the patient's history of gestational diabetes. - Provided education on dietary modifications for prediabetes, including avoiding sweets and reducing intake of starchy foods like white rice and white flour, while focusing on increased protein and fiber. - Recommended continuing regular exercise and maintaining a healthy weight to delay or prevent the onset of diabetes. - Reassured the patient that routine blood sugar monitoring at home is not necessary at this time. - Follow-up will be conducted to discuss the results of the glucose tolerance test. - Discussed treatment options for anxiety, suggesting Lexapro (escitalopram) as a non-drowsy option. - Advised the patient to confirm with her work clinic if Lexapro is an approved medication for her role in the [employer] and to send a message if she is cleared to take it to start a low dose. - The patient's blood pressure was rechecked after she had time to relax and found to be 120/82 mmHg. Orders: Orders Glucose Tolerance 2 Hour Today O24.419 - Gestational diabetes mellitus in , unspecified control
[2025-08-04 13:38] VITALS: BP 120/82
--- OUTSIDE RECORDS SUMMARY | 2025-08-04 15:00 | XMS_ITS | Encounter Summary ---
Author Organization [facility] and [facility] Address [address] [place] [phone] Care Team Providers Care Supervisor [employer] Name Role Phone Pcp, Does Not Have A Primary Care Provider Unava ilable Encounter Details Date Type Department Care Team (Late st Contact Info) Description 09/09/2023 Scanned Document Reproductive Endocrinology & Infertility 200 [facility] [address]nd [place] [address] Obtain, Unable To Social History Tobacco Use [...] on filedocumented in this encounter Care Teams Supervisor [employer] Relationship Specialty Start Date End Date Pcp, Does Not Have A PCP - General 08/03/23 documented as of this encounter
--- OUTSIDE RECORDS SUMMARY | 2025-08-04 15:00 | XMS_ITS | Encounter Summary ---
Author Organization [facility] and [facility] Address [address] [place] [phone] Care Team Providers Care Shop Tailor Name Role Phone Pcp, Does Not Have A Primary Care Provider Unava ilable Encounter Details Date Type Department Care Team (Late st Contact Info) Description 07/22/2023 Documentation [facility] [address], [place] [address] Chanel Echeverria MD [address] [place] [address] Dr Reyes [address] [place] [address] Social History Tobacco Use Types Packs/Day Years Used Date Smoking Tobacco: Never Assessed Comments Unknown Sex and Gender Information Value Date Recorded Sex Assigned at Not on file Legal Sex Female 4:09 PM EST Gender Identity Not on file Sexual Orientation Not on file documented as of this encounter Miscellaneous Notes * Treatment Plan - Freedom Crystal - 07/22/2023 1:32 PM EST Outside Monitoring Treatment plan Physician: GILDARDO Diagnosis and ICD 10 codes: z31.78 Outside Facility: [facility] Fertility Outside Ordering Physician Name: Soy Kincaid Outside Facility Outside Facility Expected monitoring start date: 08/03/2023 08/19/2023 Monitoring Site: Patient will be monitored in [place]: no Patient will be monitored in [place]: yes Monitoring Authorization Needed: Venipuncture 08825: yes Transvaginal Ultrasound 76785: yes Transpelvic Ultrasound 84111: no Estradiol Blood Work 81814: yes Progesterone Blood Work 16802: yes FSH Blood Work 76245: no LH Blood Work 51570: no TSH Blood Work 98144: no HCG Blood Work [address]: no Additional Comments: documented in this encounter Plan of Treatment Not on file documented as of this encounter Visit Diagnoses Not on filedocumented in this encounter Care Teams Shop Tailor Relationship Specialty Start Date End Date Pcp, Does Not Have A PCP - General 08/03/23 documented as of this encounter
--- OUTSIDE RECORDS SUMMARY | 2025-08-04 15:01 | XMS_ITS | Encounter Summary ---
Author Organization [facility] and [facility] Address [address] [place] [phone] Care Team Providers Care Invasive Physician Name Role Phone Pcp, Does Not Have A Primary Care Provider Unava ilable Encounter Details Date Type Department Care Team (Late st Contact Info) Description 09/09/2023 Documentation [facility] [address] [address] Chanel Echeverria MD [address] [place] [address] Dr Reyes [address] [place] [address] Social History Tobacco Use Types Packs/Day Years Used Date Smoking Tobacco: Never Assessed Comments Unknown Sex and Gender Information Value Date Recorded Sex Assigned at Not on file Legal Sex Female 4:09 PM EST Gender Identity Not on file Sexual Orientation Not on file documented as of this encounter Miscellaneous Notes * Treatment Plan - Freedom Crystal - 09/09/2023 7:28 AM EST Outside Monitoring Treatment plan Physician: GILDARDO Diagnosis and ICD 10 codes: O09.811 Z31.7 Outside Facility: [facility] Fertility Outside Ordering Physician Name: Soy Kincaid MD Outside Facility Outside Facility Expected monitoring start date: 09/15/2023 Monitoring Site: Patient will be monitored in [place]: no Patient will be monitored in [place]: yes Monitoring Authorization Needed: Venipuncture 48329: yes Transvaginal Ultrasound 64162: no Transpelvic Ultrasound 10129: no Estradiol Blood Work 29397: yes Progesterone Blood Work 84218: yes FSH Blood Work 45320: no LH Blood Work 39019: no TSH Blood Work 92068: no HCG Blood Work 76808: yes Additional Comments: documented in this encounter Plan of Treatment Not on file documented as of this encounter Visit Diagnoses Not on filedocumented in this encounter Care Teams Invasive Physician Relationship Specialty Start Date End Date Pcp, Does Not Have A PCP - General 08/03/23 documented as of this encounter
--- OUTSIDE RECORDS SUMMARY | 2025-08-04 15:01 | XMS_ITS | Encounter Summary ---
Author Organization [facility] Address [address] [place] [phone] Care Team Providers Care President College Or University Name Role Phone Pcp, Does Not Have A Primary Care Provider Unava ilable Encounter Details Date Type Department Care Team (Late st Contact Info) Description 09/09/2023 Scanned Document Reproductive Endocrinology & Infertility 200 [facility] 2nd [place] [address] Obtain, Unable To Social History Tobacco Use [...] on filedocumented in this encounter Care Teams President College Or University Relationship Specialty Start Date End Date Pcp, Does Not Have A PCP - General 08/03/23 documented as of this encounter
--- OUTSIDE RECORDS SUMMARY | 2025-08-04 15:01 | XMS_ITS | Clinical Summary ---
Author Organization [address] [phone] Phone Care Team Providers Care Chemical Dependency Attendant Name Role Phone Pcp, Does Not Have [...] age to complete this topic Care Teams Chemical Dependency Attendant Relationship Specialty Start Date End Date Pcp, Does Not Have A PCP - General 08/03/23
== END 2025-08-04 14:06 | disposition home or self-care (01) ==
LOC: HO.HMCC 13:13
PROVIDERS: PCP Internal Medicine; Visit Provider Internal Medicine
DX: R73.03 Prediabetes (principal); F41.1 Generalized anxiety disorder; Z86.32 Personal history of gestational diabetes

== ENCOUNTER → 2025-08-04 13:12 | Outpatient (BNVA) | payer OTHER, SELFPAY | PROVIDERS: PCP Internal Medicine; Visit Provider Internal Medicine | DX: R73.03 Prediabetes (principal); F41.1 Generalized anxiety disorder; Z86.32 Personal history of gestational diabetes | CPT/HCPCS: 99212 ==

== ENCOUNTER 2025-08-07 07:22 | Outpatient (REF) | payer OTHER, SELFPAY ==
--- OUTSIDE RECORDS SUMMARY | 2025-08-07 07:31 | XMS_ITS | Encounter Summary ---
Author Organization [facility] Address [address] [place] [phone] Care Team Providers Care Wardrobe Coordinator Name Role Phone Pcp, Does Not Have A Primary Care Provider Unava ilable Encounter Details Date Type Department Care Team (Late st Contact Info) Description 09/09/2023 Scanned Document Reproductive Endocrinology & Infertility 200 [facility] [address]nd [place] [address] Obtain, Unable To Social History Tobacco Use [...] on filedocumented in this encounter Care Teams Wardrobe Coordinator Relationship Specialty Start Date End Date Pcp, Does Not Have A PCP - General 08/03/23 documented as of this encounter
--- OUTSIDE RECORDS SUMMARY | 2025-08-07 07:31 | XMS_ITS | Encounter Summary ---
Author Organization [facility] and [facility] Address [address] [place] [phone] Care Team Providers Care Assistant Finance Director Name Role Phone Pcp, Does Not Have A Primary Care Provider Unava ilable Encounter Details Date Type Department Care Team (Late st Contact Info) Description 07/22/2023 Documentation Reproductive [facility] at [facility] [address], [place] [address] Chanel Echeverria MD [address] [place] [address] Dr Reyes [address] [place] [address] Social History Tobacco Use Types Packs/Day Years [...] and ICD 10 codes: z31.78 Outside Facility: [facility] Fertility Outside Ordering Physician Name: Soy Kincaid Outside Facility Outside Facility Expected monitoring start date: 08/03/2023 08/19/2023 Monitoring Site: Patient will be monitored in [place]: no Patient will be monitored in [place]: yes Monitoring Authorization Needed: Venipuncture 69172: yes Transvaginal Ultrasound 54042: yes Transpelvic Ultrasound 96052: no Estradiol Blood Work 86283: yes Progesterone Blood Work 27921: yes FSH Blood Work 51929: no LH Blood Work 27222: no TSH Blood Work 56920: no HCG Blood Work 66163: no Additional Comments: documented in this encounter Plan of Treatment Not on file documented as of this encounter Visit Diagnoses Not on filedocumented in this encounter Care Teams Assistant Finance Director Relationship Specialty Start Date End Date Pcp, Does Not Have A PCP - General 08/03/23 documented as of this encounter
--- OUTSIDE RECORDS SUMMARY | 2025-08-07 07:31 | XMS_ITS | Clinical Summary ---
Author Organization [address] [phone] Phone Care Team Providers Care Director Of Golf Name Role Phone Pcp, Does Not Have [...] age to complete this topic Care Teams Director Of Golf Relationship Specialty Start Date End Date Pcp, Does Not Have A PCP - General 08/03/23
--- OUTSIDE RECORDS SUMMARY | 2025-08-07 07:31 | XMS_ITS | Encounter Summary ---
Author Organization [facility] and [facility] Address [address] [place] [phone] Care Team Providers Care Die Casting Machine Operator Name Role Phone Pcp, Does Not Have A Primary Care Provider Unava ilable Encounter Details Date Type Department Care Team (Late st Contact Info) Description 09/09/2023 Scanned Document Reproductive Endocrinology & Infertility 200 [facility] [address]nd [place] [address] Obtain, Unable To Social History Tobacco Use [...] on filedocumented in this encounter Care Teams Die Casting Machine Operator Relationship Specialty Start Date End Date Pcp, Does Not Have A PCP - General 08/03/23 documented as of this encounter
--- OUTSIDE RECORDS SUMMARY | 2025-08-07 07:31 | XMS_ITS | Encounter Summary ---
Author Organization [facility] and [facility] Address [address] [place] [phone] Care Team Providers Care Rn Occupational Health Name Role Phone Pcp, Does Not Have A Primary Care Provider Unava ilable Encounter Details Date Type Department Care Team (Late st Contact Info) Description 09/09/2023 Documentation [facility] [address], [place] [address] Chanel Echeverria MD [address] [place] [address] Dr Reyes [address] [place] [address] Social History Tobacco Use Types Packs/Day Years [...] ICD 10 codes: O09.811 Z31.7 Outside Facility: [facility] Fertility Outside Ordering Physician Name: Soy Kincaid MD Outside Facility Outside Facility Expected monitoring start date: 09/15/2023 Monitoring Site: Patient will be monitored in [place]: no Patient will be monitored in [place]: yes Monitoring Authorization Needed: Venipuncture 96232: yes Transvaginal Ultrasound 70904: no Transpelvic Ultrasound 65064: no Estradiol Blood Work 31211: yes Progesterone Blood Work 67326: yes FSH Blood Work 80203: no LH Blood Work 71112: no TSH Blood Work 60376: no HCG Blood Work 48362: yes Additional Comments: documented in this encounter Plan of Treatment Not on file documented as of this encounter Visit Diagnoses Not on filedocumented in this encounter Care Teams Rn Occupational Health Relationship Specialty Start Date End Date Pcp, Does Not Have A PCP - General 08/03/23 documented as of this encounter
[2025-08-07 09:48] LABS: Glucose 1 Hour 210 mg/dL
[2025-08-07 11:08] LABS: Glucose 2 Hour 173 mg/dL
== END 2025-08-07 07:23 | disposition home or self-care (01) ==
LOC: HO.LAB 07:22
PROVIDERS: PCP Internal Medicine; Visit Provider Internal Medicine
DX: O24.419 Gestational diabetes mellitus in pregnancy, unspecified control (principal)
CPT/HCPCS: 36415

== ENCOUNTER 2025-08-08 08:45 | Outpatient (AMB) | payer OTHER, SELFPAY ==
--- OUTSIDE RECORDS SUMMARY | 2025-08-08 09:01 | XMS_ITS | Encounter Summary ---
Author Organization [facility] and [facility] Address [address] [place] [phone] Care Team Providers Care Director Of Resource Development Name Role Phone Pcp, Does Not Have A Primary Care Provider Unava ilable Encounter Details Date Type Department Care Team (Late st Contact Info) Description 09/09/2023 Documentation [facility] [address] [address] Chanel Echeverria MD [address] [place] [address] Dr Reyes [address] [place] [address] Social History Tobacco Use Types Packs/Day Years [...] ICD 10 codes: O09.811 Z31.7 Outside Facility: [facility] Fertility Outside Ordering Physician Name: Soy Kincaid MD Outside Facility Outside Facility Expected monitoring start date: 09/15/2023 Monitoring Site: Patient will be monitored in [place]: no Patient will be monitored in [place]: yes Monitoring Authorization Needed: Venipuncture 67264: yes Transvaginal Ultrasound 77037: no Transpelvic Ultrasound 60944: no Estradiol Blood Work 67311: yes Progesterone Blood Work 62080: yes FSH Blood Work 21500: no LH Blood Work 27372: no TSH Blood Work 03076: no HCG Blood Work 60317: yes Additional Comments: documented in this encounter Plan of Treatment Not on file documented as of this encounter Visit Diagnoses Not on filedocumented in this encounter Care Teams Director Of Resource Development Relationship Specialty Start Date End Date Pcp, Does Not Have A PCP - General 08/03/23 documented as of this encounter
--- OUTSIDE RECORDS SUMMARY | 2025-08-08 09:01 | XMS_ITS | Clinical Summary ---
Author Organization [address] [phone] Phone Care Team Providers Care Veneer Taping Machine Offbearer Name Role Phone Pcp, Does Not Have [...] age to complete this topic Care Teams Veneer Taping Machine Offbearer Relationship Specialty Start Date End Date Pcp, Does Not Have A PCP - General 08/03/23
--- OUTSIDE RECORDS SUMMARY | 2025-08-08 09:01 | XMS_ITS | Encounter Summary ---
Author Organization [facility] Address [address] [place] [phone] Care Team Providers Care Patient Ambassador Name Role Phone Pcp, Does Not Have A Primary Care Provider Unava ilable Encounter Details Date Type Department Care Team (Late st Contact Info) Description 09/09/2023 Scanned Document Reproductive Endocrinology & Infertility [address] [place] [address] Obtain, Unable To Social History Tobacco Use [...] on filedocumented in this encounter Care Teams Patient Ambassador Relationship Specialty Start Date End Date Pcp, Does Not Have A PCP - General 08/03/23 documented as of this encounter
--- OUTSIDE RECORDS SUMMARY | 2025-08-08 09:01 | XMS_ITS | Encounter Summary ---
Author Organization [facility] Address [address] [place] [phone] Care Team Providers Care Security Guard Supervisor Name Role Phone Pcp, Does Not Have A Primary Care Provider Unava ilable Encounter Details Date Type Department Care Team (Late st Contact Info) Description 07/22/2023 Documentation [facility] [address], [place] [address] Chanel Echeverria MD [address] [place] [address] Dr Reyes [address] [place] [address] Social History Tobacco Use Types Packs/Day Years [...] and ICD 10 codes: z31.78 Outside Facility: [facility] Fertility Outside Ordering Physician Name: Soy Kincaid Outside Facility Outside Facility Expected monitoring start date: 08/03/2023 08/19/2023 Monitoring Site: Patient will be monitored in [place]: no Patient will be monitored in [place]: yes Monitoring Authorization Needed: Venipuncture 87841: yes Transvaginal Ultrasound 16992: yes Transpelvic Ultrasound 36340: no Estradiol Blood Work 04424: yes Progesterone Blood Work 84054: yes FSH Blood Work 20479: no LH Blood Work 87851: no TSH Blood Work 84616: no HCG Blood Work 69086: no Additional Comments: documented in this encounter Plan of Treatment Not on file documented as of this encounter Visit Diagnoses Not on filedocumented in this encounter Care Teams Security Guard Supervisor Relationship Specialty Start Date End Date Pcp, Does Not Have A PCP - General 08/03/23 documented as of this encounter
--- OUTSIDE RECORDS SUMMARY | 2025-08-08 09:01 | XMS_ITS | Encounter Summary ---
Author Organization [facility] Address [address] [place] [phone] Care Team Providers Care Fence Gate Assembler Name Role Phone Pcp, Does Not Have A Primary Care Provider Unava ilable Encounter Details Date Type Department Care Team (Late st Contact Info) Description 09/09/2023 Scanned Document Reproductive Endocrinology & Infertility [address] [place] [address] Obtain, Unable To Social History Tobacco Use [...] on filedocumented in this encounter Care Teams Fence Gate Assembler Relationship Specialty Start Date End Date Pcp, Does Not Have A PCP - General 08/03/23 documented as of this encounter
--- NOTE | 2025-08-08 09:04 | A.OFFPC_ITS ---
Intake Visit Reasons: lab review Allergies cefaclor (From [facility]) Adverse Reaction (Mild, Verified 08/04/25 13:18) hives Medication List - Last Reconciled 08/08/25 by Pastor Montanez MD No Known Home Meds Tobacco use date assessed: 06/07/25 Dental Screening Dental Screen Date: 06/07/25 HPI HPI Comments History of Present Illness Details History of Present Illness The patient is a 35 year old female presenting for follow-up to review glucose tolerance test results. Diabetes Mellitus: - The patient was diagnosed with diabete s following a glucose tolerance test where her one-hour glucose level was 210 mg/dL, which is above the 200 mg/dL threshold. - Her fasting glucose was 85 mg/dL and h er two-hour glucose was 173 mg/dL. History of Gestational Diabetes: - The patient has a history of gestation al diabetes. Social History: - Diet: The patient reports she has a p retty good diet and is mindful of what she eats. Diagnostic Results: - Glucose Tolerance Test: - Fastin mg/dL - 1-hour: 210 mg/dL - 2-hour: 173 mg/dL PFSH Surgical History History of root canal procedure Hx of section Social History Housing: House Patient Tobacco Use Status: Never used Tobacco e-Cigarette/Vaping Use: Never Used service: No Current occupational status: employed Current occupation: [employer] Cognitive needs: No Hearing needs: No Vision needs: Yes Questionnaire Thrive Questionnaire Date Thrive assessed: 02/08/25 DEEDEE-7 AMB Questionnaire DEEDEE-7 Date DEEDEE - 7 assessed: 02/12/24 Source: Developed by Drs. Soy Hdez, Fifi Fuchs, Shukri Romero and colleagues, with an educational chiqui from [employer]. Review of Systems Narrative Review of Systems - General: No fever no chills - Neurological: No headaches no dizziness - Ear nose throat: No sore throat no hearing difficulty no ear pain - Cardiovascular: No syncope, no chest pain, no palpitations - Gastrointestinal: No nausea vomiting or diarrhea - Endocrine: No polyuria polydipsia no heat intolerance - Genitourinary: No dysuria , no blood in urine Physical exam (Primary Care) Tobacco/Smoking Status: Tobacco use Status Tobacco use date assessed 06/07/25 08/08/25 09:05 Patient Tobacco Use Status Never used Tobacco 08/08/25 09:05 e-Cigarette/Vaping Use Never Used 08/08/25 09:05 Thrive Assessment: Date of Thrive Assessment Date Thrive assessed 02/08/25 08/08/25 09:05 Narrative Telehealth Telehealth Telehealth Platform: [employer] Location of provider rendering services: practice address Location of patient: address on file Patient Identification confirmed using: Name, : Yes Telehealth method: video Patient verbally consented to treatment: Yes Patient verbally consented to billing insurance company: Yes Patient informed of any privacy concerns related to visit: Yes Minutes spent on Phone/Video with Pt.: 13 Coding Level of Care Code Tele Est Pt Level 3 (15389) Diagnoses Diabetes mellitus type 2, noninsulin dependent E11.9 Assessment & Plan Assessment & Plan (1) Diabetes mellitus type 2, noninsulin dependent: Code(s): E11.9 - Type 2 diabetes mellitus without complications Category: Medical Plan Problem List - Diabetes mellitus - History of gestational diabetes Plan - The patient is diagnosed with diabetes mellitus based on a 1-hour glucose tolerance test result of 210 mg/dL. - Management will focus on diet control at this time, with no medications indicated currently. - Monitor with hemoglobin A1c every three months. - A referral will be placed for a consultation with a dietitian to assist with diet management. Orders: Referrals Turning Sander Tender Nutrition Referral E11.9 - Type 2 diabetes mellitus without complications
== END 2025-08-08 11:21 | disposition home or self-care (01) ==
LOC: HO.HMCC 08:45
PROVIDERS: PCP Internal Medicine; Visit Provider Internal Medicine
DX: E11.9 Type 2 diabetes mellitus without complications (principal)